=== PATIENT | female | born 1950 | race Caucasian/White ===

== ENCOUNTER 2024-12-28 10:23 | Outpatient (REF) | payer BC, SELFPAY ==
--- NOTE | ~2024-12-28 | XR_ITS ---
EXAMINATION: XR LUMBOSACRAL SPINE CLINICAL INFORMATION: M41.20 - Other idiopathic scoliosis, site unspecified COMPARISON: None available. TECHNIQUE: 4 views of the lumbar spine, inclusive of flexion and extension views, were obtained. FINDINGS: There is a moderate levoconvex scoliosis with a rotatory component. Estimated Valerio angle is 29 degrees, apex at L2-L3. Neutral lateral demonstrates exaggerated lordosis. There is an approximate 4 mm retrolisthesis of T10 on T11. No additional subluxation. Moderate chronic appearing superior endplate compression deformity of L4. Moderate to severe compression deformity of T11 and T12. Kyphoplasty cement noted in T12. Focal kyphosis present at T10-T11. Mild to moderate degenerative facet changes present at L3-S1. Only mild disc degeneration evident. Flexion and extension views demonstrate no evidence of instability. XR/XR lumbar spine 4V min IMPRESSION: 1. Moderate levoconvex scoliosis, estimated at 29 degrees, with a rotatory component. 2. Chronic compression deformities T11, T12, and L4. Kyphoplasty cement in T12. 3. Focal kyphosis at T10-T11, with 4 mm retrolisthesis, remains stable in flexion and extension. There is no evidence of instability. 4. Mild to moderate degenerative spondylosis involving predominantly the facets spanning L3-S1. Electronically signed by: Larry Mora MD 01/01/2025 11:26 AM LINA OBRIEN
== END 2024-12-28 10:24 | disposition home or self-care (01) ==
LOC: HO.HOSX 10:23
PROVIDERS: PCP Internal Medicine; Visit Provider Physician Assistant
DX: M41.20 Other idiopathic scoliosis, site unspecified (principal)
CPT/HCPCS: 72110

== ENCOUNTER 2024-12-28 10:23 | Outpatient (AMB) | payer BC, SELFPAY ==
--- NOTE | 2024-12-28 10:50 | HO.SPINEOV ---
Vital Signs 12/28/24 11:17 Height 5 ft 1 in Weight 80 lb BMI 15.1 Intake Visit Reasons: LBP and leg pain Intake Note: Mrs. 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: No Allergies No Known Allergies Allergy (Verified 12/28/24 11:19) Physical Exam Vital Signs: BMI result Body Mass Index 15.1 Assessment & Plan Assessment & Plan (1) Scoliosis (and kyphoscoliosis), idiopathic: Code(s): M41.20 - Other idiopathic scoliosis, site unspecified Category: Medical (2) Compression fracture of L4 vertebra: Code(s): S32.040A - Wedge compression fracture of fourth lumbar vertebra, initial encounter for closed fracture Category: Medical Plan Dear Dr Carlin, Mrs Bay is a self-referred 74-year-old female who has history of osteoporosis and has had kyphoplasty done in the past at [facility] for back pain, who has had over the last few years is severe right posterior thigh pain. It began rather subtle but then progressed to be severe. Now she is having trouble sitting, standing, walking for any length. She is constantly up and down changing positions. She does have conservative treatment that she has tried including physical therapy as well as cortisone injections done at the [place]. The cortisone injections did help a 1st but now they have lost their effectiveness. She has an absolute agony most of the day. She has tried [id number] pain medications things like Tylenol and Motrin etc. without any relief. She is actually on a fentanyl patch at this point. She is looking for some surgical solution to her issues. She has an MRI [facility] showing severe stenosis at L3-4 with compression fracture at L4. PMH: Osteoporosis, anxiety/depression, GERD, hypertension. Denies any history of heart attacks, strokes, bleeding disorders, blood clots, pulmonary issues, kidney or liver disease. Social hx: Quit smoking many years ago, she was a heavy drinker for few years but quit that a number of years ago as well, no recreational drugs Medications: Tylenol, Fosamax, amlodipine, bupropion, calcium, cholecalciferol, vitamin B12, folate, cyclobenzaprine, desonide, famotidine, fentanyl patch, folic acid, Flonase, lidocaine patch, lorazepam, senna, thiamine, trazodone Allergies: None Physical exam: Frail-appearing elderly woman no acute distress, she is very uncomfortable to palpation of her lumbar spine. She has no focal motor deficits but she does have absent right patellar reflex. Imaging review: There is a lumbar MRI from July of 2024 done at [facility] showing compression fracture subacute at L4 with disc herniation at L3-4 disc space causing moderate to severe central canal stenosis. There is a thoracic MRI showing multiple healed compression fractures as well as kyphoplasty cement in multiple areas. Impression: 74-year-old female history of severe osteoporosis, multiple compression fractures in the thoracic spine, compression fracture at L4 which is subacute from her MRI last July with disc bulging causing moderate to severe stenosis at L3-4 which we think would explain her right leg pain. She also has absent right patellar reflex. She has been through numerous rounds of conservative treatment. The lumbar injections were helping for awhile but no longer. I am going to send her for standing flexion-extension x-rays as well as a new MRI to evaluate for any new fractures. Dr. Stephens reviewed the imaging with me in think she would be a good candidate for right L3-4 decompression with an L4 kyphoplasty possibly in addition. We will get the new MRI at [place] year and make any changes to the surgical plan as needed. We will also review the x-rays together as well in case there is something that we are not expecting when we see the spinal position in a vertical posture. If there are no significant changes either of these the plan would be as outlined above. We gave her tentative date for January 31. Pt was given risk and benefits of surgery including but not limited to infection, hematoma , nerve injury,durotomy, weakness,bowel/bladder injury, persistent pain, further collapse of the osteo a product spine resulting in more stenosis as well as the option to continue with conservative treatment and patient wishes to proceed with surgery. Pt is aware they should stop their motrin, aspirin 7 days prior to surgery. All questions were answered to the best of our ability. If there is anything about this patients medical history that we have overlooked or concerns you have about us proceeding with surgery we would appreciate any input you can offer. Thank you for allowing us to care for your patient. The total time spent with this visit with this patient was 45 minutes reviewing history, physical exam, lumbar imaging review, and implementation of treatment plan or further diagnostic testing Sylvester Stephens MD,PhD [facility] Orders: Orders MR lumbar spine wo con Today S32.040A - Wedge compression fracture of fourth lumbar vertebra, initial encounter for closed fracture XR lumbar spine 4V min Today M41.20 - Other idiopathic scoliosis, site unspecified Coding Level of Care Code New Pt Level 4 (07355) Diagnoses Scoliosis (and kyphoscoliosis), idiopathic M41.20 Compression fracture of L4 vertebra S32.040A
[2024-12-28 11:17] VITALS: BMI 15.1
== END 2024-12-28 12:04 | disposition home or self-care (01) ==
PROVIDERS: PCP Internal Medicine; Visit Provider Physician Assistant
DX: M41.20 Other idiopathic scoliosis, site unspecified (principal); S32.040A Wedge compression fracture of fourth lumbar vertebra, initial encounter for closed fracture
CPT/HCPCS: 99204

== ENCOUNTER → 2024-12-28 12:24 | Outpatient (BNV) | payer BC, SELFPAY | PROVIDERS: PCP Internal Medicine; Visit Provider Radiology Diagnostic Radiology | DX: M41.20 Other idiopathic scoliosis, site unspecified (principal); M47.896 Other spondylosis, lumbar region | CPT/HCPCS: 72110 ==

== ENCOUNTER → 2025-01-11 09:32 | Outpatient (BNV) | payer MEDICARE, SELFPAY | PROVIDERS: PCP Internal Medicine; Visit Provider Radiology Diagnostic Radiology | DX: M48.061 Spinal stenosis, lumbar region without neurogenic claudication (principal); M47.896 Other spondylosis, lumbar region | CPT/HCPCS: 72148 ==

== ENCOUNTER 2025-01-11 09:41 | Outpatient (REF) | payer MEDICARE, SELFPAY ==
--- NOTE | ~2025-01-11 | MR_ITS ---
EXAMINATION: MR LUMBAR SPINE WITHOUT CONTRAST CLINICAL INFORMATION: Back pain. Right lower extremity weakness and numbness and pain. Status post kyphoplasty. COMPARISON: Correlated to x-ray dated December 28, 2024 demonstrated compression fracture L4 and kyphoplasty T12. TECHNIQUE: MRI of the lumbar spine was obtained using routine sequences without contrast. FINDINGS: Last rib-bearing vertebra labeled T12. There is a superior endplate compression deformity at representing 40% volume loss and 5 mm retropulsion upon central canal without bone marrow STIR signal at L4. Status post kyphoplasty at T12. There is a vertebral plana without bone marrow STIR signal at T11. There is a 3 mm retropulsion upon central canal of T11. There is kyphotic deformity apex at T11-T12. Conus medullaris ends at pedicle of L1 with normal signal. T11-12: There is central retropulsion of the vertebral body without compression upon neural elements. T12-L1: No disc herniation. No neuroforamina stenosis. L1-2: Broad-based disc bulging. Facet joint and ligamentum flavum hypertrophy. Reduced AP diameter of the thecal sac. No compression upon neural elements. L2-3: Broad-based disc bulging. Facet joint and ligamentum flavum hypertrophy. Reduced AP diameter of the thecal sac. No neuroforamina stenosis. L3-4:: Broad-based disc bulging facet joint and ligamentum flavum hypertrophy resulting in CSF effacement of the thecal sac compressing the neural elements. There is bilateral neuroforamina stenosis encroaching the exiting nerve roots. L4-5: Broad-based disc bulging facet joint and ligamentum flavum hypertrophy. Reduced AP diameter of the thecal sac and the neural foramina likely encroaching the neural elements. L5-S1: Broad-based disc bulging. Facet joint hypertrophy. No compression upon neural elements. 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 There is an levoconvex curvature of the lumbar spine. There is no prevertebral compartment hematoma masses. Cystic lesions in the kidneys. MR/MR lumbar spine wo con IMPRESSION: Old superior endplate compression deformity at L4 to representing 40% volume loss with 5 mm retropulsion upon central canal with spondylosis causing central spinal canal stenosis and compression upon neural elements of the thecal sac and likely encroaching the exiting nerve roots. Multilevel lumbar spondylosis resulting in central spinal canal stenosis at L4-5 and to a lesser extent L2-3. Old vertebra plana ,T11. Kyphoplasty T12. No acute fracture. Electronically signed by: Ash Alanis MD 01/11/2025 12:23 PM EST
== END 2025-01-11 09:42 | disposition home or self-care (01) ==
LOC: HO.MRI 09:41
PROVIDERS: PCP Internal Medicine; Visit Provider Physician Assistant
DX: S32.040A Wedge compression fracture of fourth lumbar vertebra, initial encounter for closed fracture (principal)
CPT/HCPCS: 72148

== ENCOUNTER 2025-01-31 05:53 | Day surgery (SDC) | payer MEDICARE, SELFPAY ==
[2025-01-16 14:28] VITALS: BMI 15.2
[2025-01-31] VITALS (11 sets, daily range): BP systolic 117–149; BP diastolic 68–88; PULSE 68–85; RESP 12–20; TEMP 36.1–36.4; O2SAT 96–100
--- NOTE | ~2025-01-31 | FL_ITS ---
EXAMINATION: FL GUIDANCE ONLY HISTORY: L3-4 Decompression Right, L4 Kyphoplasty COMPARISON: Correlation is made with plain films of the lumbar spine dated 12/28/2024. TECHNIQUE: Fluoroscopy time: 3.76 minutes. Cumulative Dose: 12.5497 mGy. DAP: 9.9601 mGym2 Images: 2. FINDINGS: Images demonstrate kyphoplasty changes at L4. FL/FL guidance in OR IMPRESSION: Fluoroscopy during procedure. Please see procedure report for additional information. Electronically signed by: Demetris Corey MD 01/31/2025 10:17 AM EDT
[2025-01-31] MEDS: methocarbamoL 750 MG TABLET PO (06:10)
[2025-01-31] MEDS: Gabapentin 300 MG CAPSULE PO (06:10)
[2025-01-31] MEDS: Lactated Ringers 1,000 ML 100 ML IVCONT (06:36)
--- NOTE | 2025-01-31 06:47 | PC.NURSE ---
pt took her fentanyl patch off at home
--- NOTE | 2025-01-31 07:02 | P.HPSUR_ITS ---
Pre-Procedural Eval Section A - 24 Hr Update-Section A only Date of Service: 01/31/25 The patient is an INPATIENT: No Changes since office visit: No Cold of Flu in the past 2 weeks, No New Medical Problems, No Changes in Medication and No Patient answered all questions The patient has been examined within 24 hours of the surgical procedure. The History & Physical has been completed within 30 days and I have reviewed it.: No Section B - Complete if H&P > 30 days Chief Complaint: Wedge compression fx of 4th lumbarosteochondrosis Allergies: Allergies Allergy/AdvReac Type Severity Reaction Status Date / Time No Known Allergies Allergy Verified 12/28/24 11:19 Review of Systems Sugical H&P ROS: Negative: Constitution, Cardiovascular, Respiratory, Neurological, Psychiatric, Hem-Onc, Allergic/Immunologic, Gastrointestinal, Genitourinary, Musculoskeletal, Integumentary, Endocrine and Eyes/Ears/Nose/Thro at Exam Surgical H&P Exam: Normal: HEENT, Normal: Heart, Normal: Lungs, Normal: Extremities, Normal: Abdomen, Normal: Skin and Normal: Neurological Plan Diagnosis/Plan: Unchanged L4 kyphoplasty, right L3-4 decompression Time Spent With Patient Time: Total time managing care of this patient today _6___ minutes.
--- NOTE | 2025-01-31 07:03 | PM.DS ---
DS: Providers Provider Date of Service: 01/31/25 Date of discharge: 01/31/25 Primary care physician: Shahriar Carlin MD Admitting clinician: Roland Stephens DS: Diagnosis Discharge Diagnosis (1) Compression fracture of L4 vertebra: Status: Acute DS: Summary Time Attestation Discharge Coordination Time (in mins): 5 Quality: Safe Use of Opioids Does Pt have an Active Cancer Diagnosis on the Problem List?: No Quality: Stroke Does the patient have a stroke diagnosis?: No Physical Exam Vital Signs: Vital Signs: Last Vital Signs Temp 97.5 F 01/31/25 06:12 Pulse 85 01/31/25 06:12 Resp 20 01/31/25 06:12 BP 127/76 01/31/25 06:12 Pulse Ox 97 01/31/25 06:12 O2 Del Method Room Air 01/31/25 06:12 BMI result Body Mass Index 15.2 Discharge Plan Discharge Patient Disposition: Home, Self-Care Referrals: Shahriar Carlin MD [Primary Care Provider] - 1 Week Discharge Medications: New docusate sodium [Colace] 100 mg capsule 100 mg PO BID Qty: 20 0RF oxycodone 5 mg tablet 5 mg PO Q4H PRN (Reason: pain) Qty: 20 0RF Rx Instructions: Partial Fill upon patient request. No Action sumatriptan succinate 25 mg tablet 25 mg PO Q2H PRN (Reason: migraine) alendronate 70 mg tablet 70 mg PO QWEEK thiamine HCl (vitamin B1) 100 mg tablet 100 mg PO DAILY amlodipine 5 mg tablet 5 mg PO DAILY acetaminophen 500 mg tablet 1,000 mg PO Q6H PRN (Reason: pain) trazodone 100 mg tablet 300 mg PO BEDTIME omeprazole 20 mg capsule,delayed release(DR/EC) 20 mg PO BID lorazepam 1 mg tablet 1 mg PO TID fentanyl 25 mcg/hr patch 72 hour 1 patch topical Q3D oxycodone 5 mg tablet 5 mg PO Q8H PRN (Reason: pain) bupropion HCl 200 mg tablet sustained-release 12 hr 200 mg PO BID sennosides [senna] 8.6 mg Tablet 8.6 mg PO BID cyanocobalamin (vitamin B-12) [Vitamin B-12] 1,000 mcg Tablet 1,000 mcg PO DAILY calcium carbonate-vitamin D3 [Calcium + D] 600 mg-5 mcg (200 unit) Tablet 1 tab PO TID cholecalciferol (vitamin D3) [Vitamin D3] 50 mcg (2,000 unit) Capsule 50 mcg PO DAILY naloxone 4 mg/actuation [place],Non-Aerosol 4 mg INTRANASAL Q3M PRN (Reason: Opioid Overdose) Rx Instructions: spray 1 dose into ONE nostril; alternate nostrils w each dose until help arrives folic acid 1 mg Tablet 1 mg PO DAILY Discharge Orders: Discharge Order (Routine); Ordered 01/31/25 Ordered By: Sylvester Steel Diet: Advance to usual diet Activity on Discharge: As tolerated Activity Restrictions/Additional Instructions: After your spinal surgery we ask you to observe the following restrictions/guidelines: Activity: It is normal to feel some discomfort as you increase your activity, but that will improve with time. We ask you avoid heavy lifting or acitivities that cause pain. As a general rule, 8lbs is a safe limit for lifting right after surgery. Walk as much as you feel comfortable but not to exhaustion. You will feel extra tired the first few days after surgery. Stay well hydrated. It is OK to walk up and down stairs You may return to driving when you are off narcotics (such as vicodin, oxycodone, dilaudid, etc), and you are back to normal functional capacity. If you have any concerns please check with office before driving. Return to work is specific to each patient and each surgery, so please speak with your doctor/PA at first follow up. Please bring paperwork such as FMLA at that time if you need it filled out. Medications: For optimum pain control, it is best to start with a combination of 500 mg of Tylenol every 4 hours with 600 mg of Motrin every 8 hours, and use narcotics as needed in between for breakthrough pain. We will give you a short supply of narcotics after surgery (usually one weeks worth). If you need more please call the office but do not use more than prescribed. You will need to give our office 48 hours notice if you need narcotics refilled and we do not fill narcotics on weekends or evenings. If you are on a narcotic, it is a good idea to take a stool softener such as colace or senna to avoid constipation If you take blood thinner such as aspirin, Plavix, Coumadin, Effient, Eliquis etc for conditions such as Afib, DVT, Pulmonary embolus, coronary disease, stents etc please speak with your surgeon about specific details as to when you can resume these medications. You can resume NSAIDs on post op day 1 (eg: Motrin, Naproxen, etc). Follow up: Please call the office, , after surgery to arrange a 3 week follow up for wound check. Wound Care: You may remove your dressing on the first day after surgery. ?You may ?leave open to air. Please do not remove the steri strips underneath. they will fall off on their own in one week. IT IS NORMAL FOR THE WOUND TO OOZE OR BE BLOODY FOR A FEW DAYS AFTER SURGERY. ?IF THIS HAPPENS JUST PLACE NEW DRESSING OVER IT TO AVOID STAINING CLOTHES. You may shower on post op day # 1 We ask that you do not let the water soak the wound. If it does get wet, just towel dry lightly. Please do not scrub your incision or place any type of chemical/ointment on the wound. No tub baths, pools or jacuzzis for one month. If you have any leaking or redness from your wound, or fevers, please call office Print Language: Honduran
--- NOTE | 2025-01-31 07:20 | HO.ANESPROP2 ---
Documented by User: Melissa Garcia NP 01/30/25 10:25 HPI - Anesthesia Eval Consult details Narrative: 74yo F for Right L3-4 Lumbar Decomperssion, L4 Kyphoplasty Fentanyl patch PMFSH Active Problems Active Problems: All Active Problems Compression fracture of L4 vertebra (Acute) Scoliosis (and kyphoscoliosis), idiopathic (Acute) Past Medical History Medical History (Updated 01/16/25 @ 09:57 by Esthela Shah, RN) Osteoporosis Right leg pain Low back pain HTN (hypertension) Depression Anxiety GERD (gastroesophageal reflux disease) Constipation Surgical History Surgical History (Updated 01/16/25 @ 14:41 by Esthela Shah, RN) Hx of colonoscopy Hx of tonsillectomy History of History of kyphoplasty Social History Social History (Updated 01/16/25 @ 14:44 by Esthela Shah, GALLITO) Household Members: Significant Other Housing: Apartment Are you a primary professional healthcare representative to a significant other at home: No Do you presently have visiting nurse or other home services: No Patient Tobacco Use Status: Former Tobacco user Tobacco use type: Cigarette Smoked in Last 30 Days: No Use of substances other than those prescribed or required for medical reasons: No Have you been hit, kicked, punched, or otherwise hurt by someone within the past year? If so, by whom?: No Are you DNR?: No Advance Directives: No Advance Directives Information Provided: Yes Advance Directives on File: No Healthcare Proxy: No Recently lost weight without trying: Yes How much weight loss: 24-33 pounds Eating poorly because of decreased appetite: Yes Nutrition screen score: 6 Poor oral hygiene: No (was 105# pounds 3-4 years ago, lost weight r/t pain) Meds Allergies Allergy/AdvReac Type Severity Reaction Status Date / Time No Known Allergies Allergy Verified 12/28/24 11:19 Home Medications ?Medication ?Instructions ?Recorded ?Confirmed ?Last Taken ?Type acetaminophen 500 mg tablet 1,000 mg PO Q6H PRN pain 01/16/25 01/16/25 01/30/25 History alendronate 70 mg tablet 70 mg PO QWEEK 01/16/25 01/16/25 01/30/25 History amlodipine 5 mg tablet 5 mg PO DAILY 01/16/25 01/16/25 01/30/25 History bupropion HCl 200 mg tablet,12 hr 200 mg PO BID 01/16/25 01/16/25 01/30/25 History sustained-release calcium 600 mg (as 1 tab PO TID 01/16/25 01/16/25 01/30/25 History carbonate)-vitamin D3 5 mcg (200 unit) tablet cholecalciferol (vitamin D3) 50 50 mcg PO DAILY 01/16/25 01/16/25 01/30/25 History mcg (2,000 unit) capsule (Vitamin D3) cyanocobalamin (vitamin B-12) 1,000 mcg PO DAILY 01/16/25 01/16/25 01/30/25 History 1,000 mcg tablet (Vitamin B-12) fentanyl 25 mcg/hr transdermal 1 patch topical Q3D 01/16/25 01/16/25 Unknown History patch folic acid 1 mg tablet 1 mg PO DAILY 01/16/25 01/16/25 01/30/25 History lorazepam 1 mg tablet 1 mg PO TID 01/16/25 01/16/25 01/30/25 History naloxone 4 mg/actuation nasal spray 4 mg intranasal Q3M PRN Opioid 01/16/25 01/16/25 Unknown History Overdose omeprazole 20 mg capsule,delayed 20 mg PO BID 01/16/25 01/16/25 01/30/25 History release oxycodone 5 mg tablet 5 mg PO Q8H PRN pain 01/16/25 01/16/25 01/30/25 History sennosides 8.6 mg tablet (senna) 8.6 mg PO BID 01/16/25 01/16/25 01/30/25 History sumatriptan succinate 25 mg tablet 25 mg PO Q2H PRN migraine 01/16/25 01/16/25 01/30/25 History thiamine HCl (vitamin B1) 100 mg 100 mg PO DAILY 01/16/25 01/16/25 01/30/25 History tablet trazodone 100 mg tablet 300 mg PO BEDTIME 01/16/25 01/16/25 01/30/25 History Exam Height,Weight and Vital Signs: Height 5 ft 1.5 in Weight 37.195 kg Pertinent Lab Results Pertinent Lab Results: CBC and BMP 09/2024 OK Narrative Narrative: EKG 10/2024 NSR @ 74 Assessment and Plan Assessment Anesthesia Assessment: Chart Reviewed Documented by User: Myla Garcia DO 01/31/25 07:25 HPI - Anesthesia Eval Consult details Narrative: 74yo F for Right L3-4 Lumbar Decomperssion, L4 Kyphoplasty Fentanyl patch 25 mcg/hr - removed yesterday PMFSH Past Medical History Medical History (Updated 01/16/25 @ 09:57 by Esthela Shah, RN) Osteoporosis Right leg pain Low back pain HTN (hypertension) Depression Anxiety GERD (gastroesophageal reflux disease) Constipation Family History Family history of problems with anesthesia: No Surgical History Surgical History (Updated 01/16/25 @ 14:41 by Esthela Shah, RN) Hx of colonoscopy Hx of tonsillectomy History of History of kyphoplasty History of Problems with Anesthesia: No Social History Social History (Updated 01/16/25 @ 14:44 by Esthela Shah, RN) Household Members: Significant Other Housing: Apartment Are you a primary professional healthcare representative to a significant other at home: No Do you presently have visiting nurse or other home services: No Patient Tobacco Use Status: Former Tobacco user Tobacco use type: Cigarette Smoked in Last 30 Days: No Use of substances other than those prescribed or required for medical reasons: No Have you been hit, kicked, punched, or otherwise hurt by someone within the past year? If so, by whom?: No Are you DNR?: No Advance Directives: No Advance Directives Information Provided: Yes Advance Directives on File: No Healthcare Proxy: No Recently lost weight without trying: Yes How much weight loss: 24-33 pounds Eating poorly because of decreased appetite: Yes Nutrition screen score: 6 Poor oral hygiene: No (was 105# pounds 3-4 years ago, lost weight r/t pain) Meds Allergies Allergy/AdvReac Type Severity Reaction Status Date / Time No Known Allergies Allergy Verified 12/28/24 11:19 Home Medications ?Medication ?Instructions ?Recorded ?Confirmed ?Last Taken ?Type acetaminophen 500 mg tablet 1,000 mg PO Q6H PRN pain 01/16/25 01/16/25 01/30/25 History alendronate 70 mg tablet 70 mg PO QWEEK 01/16/25 01/16/25 01/30/25 History amlodipine 5 mg tablet 5 mg PO DAILY 01/16/25 01/16/25 01/30/25 History bupropion HCl 200 mg tablet,12 hr 200 mg PO BID 01/16/25 01/16/25 01/30/25 History sustained-release calcium 600 mg (as 1 tab PO TID 01/16/25 01/16/25 01/30/25 History carbonate)-vitamin D3 5 mcg (200 unit) tablet cholecalciferol (vitamin D3) 50 50 mcg PO DAILY 01/16/25 01/16/25 01/30/25 History mcg (2,000 unit) capsule (Vitamin D3) cyanocobalamin (vitamin B-12) 1,000 mcg PO DAILY 01/16/25 01/16/25 01/30/25 History 1,000 mcg tablet (Vitamin B-12) fentanyl 25 mcg/hr transdermal 1 patch topical Q3D 01/16/25 01/16/25 Unknown History patch folic acid 1 mg tablet 1 mg PO DAILY 01/16/25 01/16/25 01/30/25 History lorazepam 1 mg tablet 1 mg PO TID 01/16/25 01/16/25 01/30/25 History naloxone 4 mg/actuation nasal spray 4 mg intranasal Q3M PRN Opioid 01/16/25 01/16/25 Unknown History Overdose omeprazole 20 mg capsule,delayed 20 mg PO BID 01/16/25 01/16/25 01/30/25 History release oxycodone 5 mg tablet 5 mg PO Q8H PRN pain 01/16/25 01/16/25 01/30/25 History sennosides 8.6 mg tablet (senna) 8.6 mg PO BID 01/16/25 01/16/25 01/30/25 History sumatriptan succinate 25 mg tablet 25 mg PO Q2H PRN migraine 01/16/25 01/16/25 01/30/25 History thiamine HCl (vitamin B1) 100 mg 100 mg PO DAILY 01/16/25 01/16/25 01/30/25 History tablet trazodone 100 mg tablet 300 mg PO BEDTIME 01/16/25 01/16/25 01/30/25 History Exam Exam Date and Time: 01/31/25 0720 Height,Weight and Vital Signs: Height 5 ft 1.5 in Weight 37.195 kg Vital Signs Temperature 97.5 F 01/31/25 06:12 Pulse Rate 85 01/31/25 06:12 Respiratory Rate 20 01/31/25 06:12 Blood Pressure 127/76 01/31/25 06:12 Pulse Oximetry 97 01/31/25 06:12 Oxygen Delivery Method Room Air 01/31/25 06:12 Temperature 97.5 F 01/31/25 06:12 Pulse Rate 85 01/31/25 06:12 Respiratory Rate 20 01/31/25 06:12 Blood Pressure 127/76 01/31/25 06:12 Pulse Oximetry 97 01/31/25 06:12 Oxygen Delivery Method Room Air 01/31/25 06:12 Airway Mallampati Class: I TM Dist: >3cm Neck ROM: Full Loose/Missing/Broken Teeth: No (patient denies any loose or broken teeth) Heart: S1S2 Lungs: CTAB Assessment and Plan Assessment Anesthesia Assessment: Anesthesia Plan Discussed and Chart Reviewed Final Anesthetic Review Family History of Problems with Anesthesia: No History of Problems with Anesthesia: No NPO: Yes ASA Class: III Final Preanesthetic Review: No Changes in Pt Med Stat, Meds/Allgs Chart Reviewed, Consent Obtained/Reviewed and Anes Risks/Benef Reviewed Patient Risk: Low Procedure Risk: Low Anesthetic Plan Anesthetic Plan: GA and Agree w/ Assess. and Plan Disposition: Standard PACU
[2025-01-31] MEDS: ceFAZolin Sodium/Dextrose,Iso 2 GM/50 ML PIGGYBACK IV (07:35)
--- NOTE | 2025-01-31 09:22 | W.PM.OPN ---
Operative Note Operative Note Date of Service: 01/31/25 Narrative: Preop diagnosis: L4 compression fracture and L3-4 spinal stenosis, lateral recess stenosis and foraminal stenosis Postop diagnosis: Same Procedure: L4 kyphoplasty; right L3-4 Laminotomy, Partial facetectomy and foraminotomy with use of microscope Surgeon: Roland Stephens MD Assist: saige Raya Description of procedure: This 74-year-old female is suffering from right lumbar radiculopathy due to severe L3-4 lateral recess stenosis. She was offered a decompression. She also has an L4 compression fracture and it was decided to perform a kyphoplasty as well to provide stability after the laminotomy is done. suffered from acute back pain. The procedure complications were explained. The patient was consented. The patient was brought to the operating room and endotracheally intubated. The patient was turned in a prone position on the [place] spine table. Two C- arms were installed for fluoroscopy. Prepping and draping were done followed by time-out. A stab incision was made lateral from the L4 pedicle after which a Jamshidi needle was inserted and advanced transpedicular into the vertebral body. This was done bilaterally. A drill was advanced towards the posterior 1/3 of the vertebral body through the canula bilaterally. Accordingly, dilating balloons were inserted bilaterally and inflated under AP and lateral fluoroscopic guidance. The balloons were deflated and the cavities were filled with cement under fluoroscopic guidance. No extra vertebral leakage occurred . The Jamshidi needles were removed. The stab incisions were approximated with Dermabond. Then attention was turned to the lumbar decompression. The Physician assistant corporate secretary provided access. A mid lumbar incision was made followed by release of the paravertebral muscle on the right side to expose the right L3-4 lamina and facet joints. An intraoperative x-ray was obtained to confirm the correct level. The microscope was brought in. I took over the procedure. The high-speed drill was used to do a right L3-4 laminotomy until flavum ligament was reached. A #2 Kerrison was used to expand the laminotomy near flush to the pedicles and to include a partial facetectomy. The flavum ligament was opened and resected with a #3 Kerrison to decompress the underlying thecal sac. The flavum ligament was removed to decompress the lateral recess and the exiting L4 nerve root. Severe lateral recess stenosis was present and relieved. A long nerve hook could be easily passed along the medial side of the pedicle as a sign of adequate decompression. The microscope was removed. Hemostasis was done. The physician assistant corporate secretary close the incision in 2 layers. Steri-Strips were used to approximate incision. An OpSite with Tegaderm was used to cover the incision. All sponge needle counts were correct. Patient was extubated and transported in stable is to recovery room. Anesthesia: General Estimated Blood Loss (ml): 30 mL Complications: None Duration of Surgery: 75 Minutes Postoperative Plan: Discharge to home
[2025-01-31] MEDS: fentaNYL citrate/PF 100 MCG/2 ML VIAL 50 MCG IVPUSH ×2 (10:05→10:20)
[2025-01-31] MEDS: oxyCODONE HCl Immed Release 5 MG TABLET PO (10:35)
== END 2025-01-31 11:43 | disposition home or self-care (01) ==
PROVIDERS: PCP Internal Medicine; Visit Provider Neurological Surgery
PROC: (CPT 22514; principal; 2025-01-31 07:30)
PROC: (CPT 22514; 2025-01-31 07:30)
DX: S32.040A Wedge compression fracture of fourth lumbar vertebra, initial encounter for closed fracture (principal); X58.XXXA Exposure to other specified factors, initial encounter; Y93.9 Activity, unspecified; Y92.9 Unspecified place or not applicable; Y99.9 Unspecified external cause status; M48.061 Spinal stenosis, lumbar region without neurogenic claudication; M54.16 Radiculopathy, lumbar region; R26.2 Difficulty in walking, not elsewhere classified; M41.20 Other idiopathic scoliosis, site unspecified; M81.0 Age-related osteoporosis without current pathological fracture; M79.604 Pain in right leg; M54.50 Low back pain, unspecified; I10 Essential (primary) hypertension; F32.A Depression, unspecified; F41.9 Anxiety disorder, unspecified; K21.9 Gastro-esophageal reflux disease without esophagitis; K59.00 Constipation, unspecified; Z79.83 Long term (current) use of bisphosphonates; Z79.899 Other long term (current) drug therapy; Z98.890 Other specified postprocedural states; F10.21 Alcohol dependence, in remission; Z87.891 Personal history of nicotine dependence
CPT/HCPCS: 22514; 63047; C1713; J0131; J0690; J1100; J2003; J2250; J2405; J2704; J3010; Q9967

== ENCOUNTER → 2025-01-31 05:53 | Outpatient (BNV) | payer MEDICARE, SELFPAY | PROVIDERS: PCP Internal Medicine; Visit Provider Neurological Surgery | DX: M48.062 Spinal stenosis, lumbar region with neurogenic claudication (principal); S32.040A Wedge compression fracture of fourth lumbar vertebra, initial encounter for closed fracture | CPT/HCPCS: 22514; 63047; 99499 ==

== ENCOUNTER 2025-02-21 08:54 | Outpatient (AMB) | payer MEDICARE, SELFPAY ==
--- NOTE | 2025-02-21 08:57 | A.SPINEOV_ITS ---
Intake Visit Reasons: 1st post op Intake Note: Mrs. Bay is here today for her 1st post op. Transportation Museum Helper Required: No Allergies No Known Allergies Allergy (Verified 02/21/25 08:57) Assessment & Plan Assessment & Plan (1) Compression fracture of L4 vertebra: Code(s): S32.040A - Wedge compression fracture of fourth lumbar vertebra, initial encounter for closed fracture Category: Medical Plan Procedure: L4 kyphoplasty; right L3-4 Laminotomy Deisi comes in today for her 1st postoperative visit. She reports that overall she has done well since her surgery, but did state that she took a fall and twisted her knee about a week out from surgery. She reports continued right knee pain as a result of this. Other than that, her back pain is significantly better than it was prior to her operation. She is a bit discourage that she continues to have left hip pain, which she had prior to surgery. She asked several questions regarding the postoperative healing course all of which I answered to the best of my ability. No new neurological deficits. The patient ambulates well without any assistive devices. Her posterior incision site is closed and well healing with no signs of drainage. There is a bit of edema behind the incision, but this area is nontender, nonerythematous. I would like Sangeeta to follow up with us again in 6 weeks to ensure she continues to heal well from her surgery. Devin Stephens MD,PhD [facility] Coding Level of Care Code Global (65781) Diagnoses Compression fracture of L4 vertebra S32.040A
== END 2025-02-21 09:16 | disposition home or self-care (01) ==
LOC: HO.HNS 08:54
PROVIDERS: PCP Internal Medicine; Visit Provider Physician Assistant
DX: S32.040A Wedge compression fracture of fourth lumbar vertebra, initial encounter for closed fracture (principal)
CPT/HCPCS: 99024

== ENCOUNTER → 2025-02-21 08:54 | Outpatient (BNVA) | payer MEDICARE, SELFPAY | PROVIDERS: PCP Internal Medicine; Visit Provider Physician Assistant | DX: S32.040D Wedge compression fracture of fourth lumbar vertebra, subsequent encounter for fracture with routine healing (principal); X58.XXXD Exposure to other specified factors, subsequent encounter; Z98.890 Other specified postprocedural states | CPT/HCPCS: 99212 ==

== ENCOUNTER 2025-04-04 10:55 | Outpatient (AMB) | payer MEDICARE, SELFPAY ==
--- NOTE | 2025-04-04 11:01 | HO.SPINEOV ---
Intake Visit Reasons: 2nd post op Intake Note: Ms. Bay is here for her 2nd post op appointment. Behavioral Health Counselor Required: No Allergies No Known Allergies Allergy (Verified 04/04/25 11:01) Assessment & Plan Assessment & Plan (1) Status post lumbar spine surgery for decompression of spinal cord: Code(s): Z98.890 - Other specified postprocedural states Category: Medical Plan Procedure: L4 kyphoplasty; right L3-4 Laminotomy Deisi comes in today for her 2nd postoperative visit. She reports that since we saw her last she has been doing much better overall. She is no longer suffering from the severe low back pain that she had prior to her surgery. Thankfully she has recovered fairly well since the fall she had right after surgery. No new neurological deficits. The patient ambulates well without any assistive devices. Her posterior incision sites are closed and well healed. There is no need for continued routine follow up with Deisi. Devin Stephens MD,PhD [facility] Coding Level of Care Code Global (67854) Diagnoses Status post lumbar spine surgery for decompression of spinal cord Z98.890
== END 2025-04-04 11:43 | disposition home or self-care (01) ==
LOC: HO.HNS 10:55
PROVIDERS: PCP Internal Medicine; Visit Provider Physician Assistant
DX: Z98.890 Other specified postprocedural states (principal)
CPT/HCPCS: 99024

== ENCOUNTER → 2025-04-04 10:55 | Outpatient (BNVA) | payer MEDICARE, SELFPAY | PROVIDERS: PCP Internal Medicine; Visit Provider Physician Assistant | DX: Z98.890 Other specified postprocedural states (principal) | CPT/HCPCS: 99212 ==